=== PATIENT | female | born 1940 | race Caucasian/White ===

== ENCOUNTER → 2016-10-19 | Outpatient (CLI) | payer MEDICARE, BC ==
[~2016-10-19] MED LIST: CALC600T10 PO; CENTTAB PO; FIBE625T PO; FLUT50SP EACH NARE; HYDR25TA5 PO; LEVO.1 PO; POTA10TA8 PO; TAMO20TA6 PO
[2016-10-19 13:05] LABS: AUTOMATED NEUTROPHIL # 3.3 TH/MM3 (1.8-7.7); BASOPHIL % 0.5 % (0.0-2.0); EOSINOPHIL # 0.2 TH/MM3 (0-0.4); EOSINOPHIL % 3.7 % (0.0-4.0); HEMATOCRIT 41.9 % (35.0-46.0); HEMO FLAGS DIFF FINAL; LYMPHOCYTE # 1.2 TH/MM3 (1.0-4.8); MEAN CELL VOLUME 82.5 FL (80.0-100.0); MEAN CORPUSCULAR HGB CONC 33.9 % (32.0-36.0); MONO % 6.5 % (0.0-8.0); NEUT % 65.3 % (16.0-70.0); PLATELET COUNT 212 TH/MM3 (150-450); RED BLOOD COUNT 5.07 MIL/MM3 (4.00-5.30)
[2016-10-19 13:14] LABS: BACTERIA, URINE OCC /hpf; BLOOD, URINE NEG (NEG); GLUCOSE,URINE NEG (NEG); KETONE, URINE NEG (NEG); NITRITE,URINE NEG (NEG); PH, URINE 7.5 (5.0-8.5); SQUAMOUS EPITHELIAL CELL URINE 1 /hpf (0-5); URINE COLOR YELLOW (YELLW/STRAW)
[2016-10-19 13:15] LABS: COMMENT (UR) CULT NOT INDICATED; CULTURE IF INDICATED CULT NOT INDICATED
[2016-10-19 14:01] LABS: ALKALINE PHOSPHATASE 47 U/L (45-117); ALT (GPT) 21 U/L (10-53); ANION GAP 12 MEQ/L (5-15); AST (GOT) 19 U/L (15-37); BICARBONATE 24.7 MEQ/L (21.0-32.0); BLOOD UREA NITROGEN 19 MG/DL (7-18); CHLORIDE 105 MEQ/L (98-107); FREE T3 3.57 PG/ML (2.18-3.98); FREE T4 1.53 NG/DL (0.76-1.46); GLOMERULAR FILTRATION RATE 52 ML/MIN (>89); GLUCOSE,FASTING 92 MG/DL (74-99); LDL CHOLESTEROL 86 MG/DL (0-99); POTASSIUM 3.7 MEQ/L (3.5-5.1); SODIUM (NA) 142 MEQ/L (136-145); TOTAL BILIRUBIN ADULT 0.6 MG/DL (0.2-1.0)
== END ==
LOC: PLAB 08:03
PROVIDERS: ATTEND Internal Medicine
DX: E03.9 Hypothyroidism, unspecified (principal); Z12.11 Encounter for screening for malignant neoplasm of colon; Z79.899 Other long term (current) drug therapy
CPT/HCPCS: 36415; 80053; 80061; 81001; 82607; 84439; 84443; 84481; 85025

== ENCOUNTER → 2017-06-08 | Outpatient (CLI) | payer MEDICARE, BC ==
[2017-06-08 13:34] LABS: FREE T3 2.67 PG/ML (2.18-3.98); FREE T4 1.31 NG/DL (0.76-1.46)
== END ==
LOC: PLAB 08:13
PROVIDERS: ATTEND Internal Medicine
DX: E03.9 Hypothyroidism, unspecified (principal)
CPT/HCPCS: 36415; 84439; 84443; 84481

== ENCOUNTER → 2017-08-21 | Outpatient (CLI) | payer MEDICARE, BC ==
[2017-08-21 13:00] LABS: FREE T3 2.69 PG/ML (2.18-3.98); FREE T4 1.18 NG/DL (0.76-1.46)
== END ==
LOC: PLAB 08:22
PROVIDERS: ATTEND Internal Medicine
DX: E03.9 Hypothyroidism, unspecified (principal)
CPT/HCPCS: 36415; 84439; 84443; 84481

== ENCOUNTER → 2017-11-30 | Outpatient (CLI) | payer MEDICARE, BC ==
[2017-11-30 10:56] LABS: BACTERIA, URINE OCC /hpf; BILIRUBIN, URINE NEG (NEG); BLOOD, URINE NEG (NEG); GLUCOSE,URINE NEG (NEG); KETONE, URINE NEG (NEG); NITRITE,URINE NEG (NEG); PH, URINE 6.5 (5.0-8.5); SQUAMOUS EPITHELIAL CELL URINE 7 /hpf (0-5); TRANSITIONAL EPI CELLS, URINE 1 /hpf; URINE COLOR YELLOW (YELLW/STRAW); URINE LEUKOCYTE ESTERASE SMALL (NEG)
[2017-11-30 11:12] LABS: AUTOMATED NEUTROPHIL # 2.9 TH/MM3 (1.8-7.7); BASOPHIL % 0.7 % (0.0-2.0); EOSINOPHIL # 0.2 TH/MM3 (0-0.4); EOSINOPHIL % 4.5 % (0.0-4.0); HEMATOCRIT 42.9 % (35.0-46.0); HEMOGLOBIN 15.3 GM/DL (11.6-15.3); LYMPH % 29.8 % (9.0-44.0); LYMPHOCYTE # 1.5 TH/MM3 (1.0-4.8); MEAN CELL VOLUME 82.8 FL (80.0-100.0); MEAN CORPUSCULAR HEMOGLOBIN 29.5 PG (27.0-34.0); MEAN CORPUSCULAR HGB CONC 35.6 % (32.0-36.0); MEAN PLATELET VOLUME 6.9 FL (7.0-11.0); MONO % 7.2 % (0.0-8.0); MONOCYTE # 0.4 TH/MM3 (0-0.9); NEUT % 57.8 % (16.0-70.0); PLATELET COUNT 205 TH/MM3 (150-450); RED BLOOD COUNT 5.19 MIL/MM3 (4.00-5.30); RED CELL DISTRIBUTION WIDTH 12.9 % (11.6-17.2)
[2017-11-30 14:47] LABS: ALBUMIN 3.9 GM/DL (3.4-5.0); AST (GOT) 25 U/L (15-37); BICARBONATE 23.6 MEQ/L (21.0-32.0); BLOOD UREA NITROGEN 19 MG/DL (7-18); CALCIUM 9.3 MG/DL (8.5-10.1); CHLORIDE 108 MEQ/L (98-107); CREATININE 1.04 MG/DL (0.50-1.00); GLOMERULAR FILTRATION RATE 52 ML/MIN (>89); GLUCOSE,FASTING 92 MG/DL (74-99); SODIUM (NA) 142 MEQ/L (136-145)
[2017-11-30 14:48] LABS: ALT (GPT) 25 U/L (10-53); CHOLESTEROL 146 MG/DL (120-200)
[2017-11-30 15:12] LABS: ALKALINE PHOSPHATASE 44 U/L (45-117); CHOLESTEROL/ HDL RATIO 2.87 RATIO; FREE T3 2.97 PG/ML (2.18-3.98); FREE T4 1.21 NG/DL (0.76-1.46); HDL CHOLESTEROL 50.8 MG/DL (40.0-60.0); LDL CHOLESTEROL 72 MG/DL (0-99); TOTAL BILIRUBIN ADULT 0.4 MG/DL (0.2-1.0); TOTAL PROTEIN 7.3 GM/DL (6.4-8.2); TRIGLYCERIDES 117 MG/DL (42-150)
== END ==
LOC: PLAB 07:47
PROVIDERS: ATTEND Internal Medicine
DX: E03.9 Hypothyroidism, unspecified (principal); R53.83 Other fatigue; Z79.899 Other long term (current) drug therapy; Z12.11 Encounter for screening for malignant neoplasm of colon
CPT/HCPCS: 36415; 80053; 80061; 81001; 82607; 84439; 84443; 84481; 85025